=== PATIENT | female | born 2000 | race Caucasian/White ===

== ENCOUNTER 2019-06-30 03:49 | Emergency (ER) | payer OTHER, SELFPAY ==
[2019-06-30 03:59] VITALS: BP 125/69; PULSE 78; RESP 18; TEMP 36.2; O2SAT 97; BMI 26.4
--- NOTE | 2019-06-30 04:05 | ED_ITS ---
HPI - Headache General Chief Complaint: Headache Stated Complaint: sob, nausea vomiting etc since mid May 28 Time Seen by Provider: 06/30/19 04:03 Source: patient Mode of arrival: Ambulatory Limitations: no limitations History of Present Illness HPI Narrative: 20-year-old female former smoker with noncontributory medical history presents with a chief complaint of approximately 1 month of waxing and waning episodes of generalized viral type illness including runny nose, sore throat occasional cough and episodes of nausea, vomiting and diarrhea. She has been tested for coronavirus at least once and was negative. She denies any exposure to persons known to have COVID-19 has had no travel. She presents today with a chief complaint of a generalized headache that is been worsening gradually since 11:00 p.m. last night. She complains it is worse with bright lights and loud noises and improves with rest in a dark room. She denies any fever chills and has no neck pain. She denies neurologic symptoms such as numbness, tingling or weakness. She has no blurred vision or trouble with speech MD Complaint: headache Onset (ago): hour(s) Onset description: gradual Location: diffuse Severity: moderate Quality: aching Relieving factors: dark room Exacerbating factors: light and noise Associated symptoms: nausea, vomiting and photophobia Related Data Allergies Allergy/AdvReac Type Severity Reaction Status Date / Time Penicillins Allergy Verified 06/30/19 04:03 sertraline Allergy Verified 06/30/19 04:03 Review of Systems Constitutional Constitutional: Denies chills, Denies fatigue, Denies fever(s), Denies frequent falls, Reports headache(s), Denies lethargy and Denies weakness Eyes Eyes: Denies change in vision, Denies eye discharge, Denies irritation and Denies loss of vision ENT Ears, Nose, Mouth, and Throat: Denies change in voice, Denies dizziness, Reports headache(s), Denies neck pain, Denies sore throat and Denies throat swelling Cardiovascular Cardiovascular: Denies chest pain, Denies irregular heart rhythm, Denies lightheadedness, Denies palpitations, Denies dyspnea, Denies dyspnea on exertion and Denies orthopnea Respiratory Respiratory: Denies cough, Denies dyspnea, Denies dyspnea on exertion and Denies wheezing Gastrointestinal Gastrointestinal: Denies abdominal pain, Denies change in bowel habits, Denies diarrhea, Reports nausea and Reports vomiting Genitourinary Genitourinary: Denies hematuria, Denies flank pain, Denies urinary incontinence and Denies urinary urgency Musculoskeletal Musculoskeletal: Denies back pain, Denies muscle weakness, Denies neck pain, Denies numbness and Denies tingling Integumentary/Breasts Skin/Breast: Denies pruritus, Denies erythema, Denies rash and Denies wounds Neurologic Neurologic: Denies behavioral changes, Denies confusion, Denies dizziness, Denies frequent falls, Reports headache(s), Denies loss of vision, Denies numbness, Denies tingling and Denies weakness Psychiatric Psychiatric: Denies anxiety, Denies behavioral changes, Denies confusion, Denies depression, Denies homicidal ideation and Denies suicidal ideation Endocrine Endocrine: Denies fatigue, Denies flushing and Denies palpitations Hematologic/Lymphatic Hematologic/Lymphatic: Denies easy bruising Allergic/Immunologic Allergic/Immunologic: Denies urticaria, Denies throat swelling and Denies wheezing Patient History Social History Smoking Status: Former smoker Smoking Status: Former smoker alcohol intake frequency: 0-2 drinks per day Substance Use Type: does not use Exam Narrative Exam Narrative: GENERAL: [20] year old patient appears stated age. Well- nourished, well-developed patient, in mild distress. HEAD: Atraumatic. Normocephalic. EYES: Pupils equal round and reactive. Extraocular motions intact. No scleral icterus. No injection or drainage. ENT: Nose without bleeding, purulent drainage. Throat without erythema, tonsillar hypertrophy or exudate. Airway patent. NECK: Trachea midline. Non tender CARDIOVASCULAR: Regular rate and rhythm without murmurs, gallops, or rubs. RESPIRATORY: Clear to auscultation. Breath sounds equal bilaterally. No wheezes, rales, or rhonchi. GASTROINTESTINAL: Abdomen soft, non-tender, nondistended. EXTREMITIES: No edema or joint tenderness. BACK: Nontender without deformity or crepitance. No flank tenderness. NEURO: AOx3. SKIN: No rash or erythema of visible areas Initial Vital Signs Initial Vital Signs: Vital Signs Temperature 97.1 F L 06/30/19 03:59 Pulse Rate 78 06/30/19 03:59 Respiratory Rate 18 06/30/19 03:59 Blood Pressure 125/69 06/30/19 03:59 Pulse Oximetry 97 06/30/19 03:59 Course Orders Ordered: Discontinued Medications Sodium Chloride (Normal Saline 0.9%) 1,000 mls @ 1,000 mls/hr IV BOLUS ONE Stop: 06/30/19 05:03 Last Infusion: 06/30/19 04:55 Dose: 0 mls/hr Documented by: Admin: 06/30/19 04:15 Dose: 1,000 mls/hr Documented by: ZIYAD Ketorolac Tromethamine (Toradol) 15 mg IV NOW ONE Stop: 06/30/19 04:05 Last Admin: 06/30/19 04:15 Dose: 15 mg Documented by: ZIYAD Metoclopramide HCl (Reglan) 10 mg IV NOW ONE Stop: 06/30/19 04:05 Last Admin: 06/30/19 04:15 Dose: 10 mg Documented by: ZIYAD Consultations Consultation #1: . Vital Signs Vital signs: Vital Signs - 8 hr 06/30/19 03:59 06/30/19 04:55 Temperature 97.1 F L Pulse Rate 78 61 Respiratory Rate 18 16 Blood Pressure 125/69 103/57 L Pulse Oximetry 97 98 Discharge Plan Departure Patient Disposition: Home Clinical Impression: Headache Qualifiers: Headache type: unspecified Headache chronicity pattern: acute headache Intractability: not intractable Qualified Code(s): R51 - Headache Discharge Date/Time: 06/30/19 04:57 Instructions: DI for Headache Activity Restrictions/Additional Instructions: *You have been diagnosed with [ acute headache ] *What to do: *Take medications as directed *Follow up with your primary care provider in 2-3 days, call for an appointment. Let them know you were seen in the Emergency Department and that we ask that you be seen in follow up *Return to ER if you should have any new, worsening or concerning symptoms, such as [ ]
[2019-06-30] MEDS: SODIUM CHLORIDE 0.9% 1,000 ML 1000 ML IV (04:15)
[2019-06-30] MEDS: METOCLOPRAMIDE 10 MG/2 ML INJ IV (04:15)
[2019-06-30] MEDS: KETOROLAC 60 MG/2 ML VIAL 15 MG IV (04:15)
[2019-06-30 04:55] VITALS: BP 103/57; PULSE 61; RESP 16; O2SAT 98
== END 2019-06-30 04:57 | disposition home or self-care (01) ==
PROVIDERS: Emergency Provider Emergency Medicine
DX: R51 Headache (principal); R05 Cough; J02.9 Acute pharyngitis, unspecified
CPT/HCPCS: 96361; 96374; 96375; 99283; 99284; J1885; J2765

== ENCOUNTER 2019-07-29 12:56 | Emergency (ER) | payer OTHER, SELFPAY ==
[2019-07-29 13:00] VITALS: BP 116/72; PULSE 66; RESP 14; TEMP 36.8; O2SAT 98; BMI 26.4
--- NOTE | 2019-07-29 13:12 | ED_ITS ---
HPI - General Adult General Chief complaint: Nausea/Vomiting/Diarrhea Stated complaint: nausea and vomiting 2-3 weeks Time Seen by Provider: 07/29/19 13:04 Source: patient Mode of arrival: Ambulatory Limitations: no limitations History of Present Illness HPI narrative: Patient is a 19-year-old female. 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 Has had 2-3 weeks of some upper abdominal pain and nausea and vomiting. Has seen her medical department about this. Is prescribed Zofran. She states that it does help somewhat but does not take the symptoms completely away. Other than the Zofran she has not tried any other treatments. Was told to come to the emergency department if her symptoms worsened. She felt they were getting better so that is why she came. No prior abdominal surgeries. Related Data Previous Rx's Medication Instructions Recorded promethazine 25 mg PO Q6H PRN #14 tab 07/29/19 Allergies Allergy/AdvReac Type Severity Reaction Status Date / Time Penicillins Allergy Verified 07/29/19 13:15 sertraline Allergy Verified 07/29/19 13:15 Review of Systems Constitutional Constitutional: Denies fever(s) Cardiovascular Cardiovascular: Denies chest pain and Denies dyspnea Respiratory Respiratory: Denies dyspnea Gastrointestinal Gastrointestinal: Reports abdominal pain, Denies change in stool character, Reports nausea and Reports vomiting Genitourinary Genitourinary: Denies dysuria Musculoskeletal Musculoskeletal: Denies back pain, Denies myalgias and Denies arthralgias Integumentary/Breasts Skin/Breast: Denies lesions and Denies rash Neurologic Neurologic: Denies behavioral changes Psychiatric Psychiatric: Denies behavioral changes Hematologic/Lymphatic Hematologic/Lymphatic: Denies easy bleeding and Denies easy bruising Patient History Medical History Healthy adult (Acute) Social History Smoking Status: Former smoker Smoking Status: Former smoker alcohol intake frequency: 0-2 drinks per day Substance Use Type: does not use Exam Initial Vital Signs Initial Vital Signs: Vital Signs Temperature 98.3 F 07/29/19 13:00 Pulse Rate 66 07/29/19 13:00 Respiratory Rate 14 07/29/19 13:00 Blood Pressure 116/72 07/29/19 13:00 Pulse Oximetry 98 07/29/19 13:00 Const General: cooperative, comfortable and well developed Limitations: mental status not altered [facility] Head: normal to inspection and normocephalic Resp Effort & Inspection: normal respiratory effort Auscultation: clear to auscultation bilaterally Cardio Rate: regular rate Rhythm: regular rhythm GI Inspection: non-distended Palpation: soft, No firm and No tender Back/Spine/Pelvis Back: No CVA tenderness Skin Lesions: no lesions Rashes: no rashes Neuro General: alert and awake Cognition: normal cognition Speech: speech normal Extrem General: normal to inspection and capillary refill normal Course Orders Ordered: ED Orders 07/29/19 13:32 Complete Blood Count AUTO DIFF Stat Comprehensive Metabolic Panel Stat Lipase Stat Discontinued Medications Acetaminophen (Tylenol) 650 mg PO NOW ONE Stop: 07/29/19 14:09 Sodium Chloride (Normal Saline 0.9%) 1,000 mls @ 1,000 mls/hr IV BOLUS ONE Stop: 07/29/19 14:11 Last Admin: 07/29/19 14:03 Dose: 1,000 mls/hr Documented by: SONJA Ondansetron HCl (Zofran) 4 mg IV NOW ONE Stop: 07/29/19 13:13 Last Admin: 07/29/19 14:03 Dose: 4 mg Documented by: SONJA Vital Signs Vital signs: Vital Signs - 8 hr 07/29/19 13:00 07/29/19 13:45 Temperature 98.3 F Pulse Rate 66 83 Respiratory Rate 14 12 Blood Pressure 116/72 Blood Pressure [Left Arm] 116/72 Pulse Oximetry 98 97 Medical Decision Making Lab Data Lab results reviewed: Yes I reviewed the patient's lab results. Result diagrams: 07/29/19 13:32 07/29/19 13:32 Labs: Lab Results 07/29/19 07/29/19 Range/Units 13:32 13:32 WBC 8.8 (4.5-11.0) X10^3/uL RBC 4.68 (4.0-5.2) X10^6/uL Hgb 13.0 (12.0-16.0) g/dL Hct 37.6 (36-46) % MCV 80.2 (80-100) fL MCH 27.8 (26-34) PG MCHC 34.6 (30-36) % RDW 13.9 (11.6-14.8) % Plt Count 418 H (150-400) X10^3/uL Neut % (Auto) 56.4 (50-75) % Lymph % (Auto) 29.0 (25-40) % [place] % (Auto) 4.6 (3-14) % Eos % (Auto) 8.8 H (2-4) % Baso % (Auto) 1.2 (0-2) % Neut # (Auto) 5000 (8875-5822) /uL Lymph # (Auto) 2600 (3703-5512) /uL [place] # (Auto) 400 (0-900) /uL Eos # (Auto) 800 H (0-450) /uL Baso # (Auto) 100 (0-100) /uL RBC Morphology Normal morphology Sodium 137 (137-145) mmol/L Potassium 4.1 (3.4-5.1) mmol/L Chloride 102 (98-107) mmol/L Carbon Dioxide 26 (22-32) mmol/L BUN 16 (7-17) mg/dL Creatinine 0.58 (0.52-1.04) mg/dL Estimated GFR > 60.0 (>60) mL/min BUN/Creatinine Ratio 27.6 H (6-22) Glucose 124 H (70-100) mg/dL Calcium 9.4 (8.4-10.2) mg/dL Total Bilirubin 0.9 (0.2-1.3) mg/dL AST 38 H (14-36) IU/L ALT 34 (<35) IU/L Alkaline Phosphatase 73 (38-126) U/L Total Protein 8.1 (6.3-8.2) g/dL Albumin 4.7 (3.5-5.0) g/dL Globulin 3.4 (1.7-4.1) g/dL Albumin/Globulin Ratio 1.4 (1.0-2.8) Lipase 69 (23-300) U/L Point of Care Testing Test Results Negative Urine Dip Bedside Urine Glucose Negative Bedside Urine Bilirubin - Negative Bedside Urine Ketone - Negative Urine Specific [place] 1.025 Bedside Urine Occult Blood - Negative Bedside Urine pH 6.0 Bedside Urine Protein +/- 15 Bedside Urine Urobilinogen - Negative Bedside Urine Nitrite - Negative Bedside Urine Leukocytes - Negative Esterase Point of care testing: Point of Care Testing Test Results Negative Urine Dip Bedside Urine Glucose Negative Bedside Urine Bilirubin - Negative Bedside Urine Ketone - Negative Urine Specific [place] 1.025 Bedside Urine Occult Blood - Negative Bedside Urine pH 6.0 Bedside Urine Protein +/- 15 Bedside Urine Urobilinogen - Negative Bedside Urine Nitrite - Negative Bedside Urine Leukocytes - Negative Esterase MDM Narrative Medical decision making narrative: Labs are unremarkable. Low suspicion for gallbladder disease. Has a benign abdominal exam. No fevers. Will change her Zofran to Phenergan. She was instructed to contact her primary provider for further evaluation. She expressed understanding and agreement. Discharge Plan Departure Patient Disposition: Home Clinical Impression: Nausea and vomiting Qualifiers: Vomiting type: unspecified Instructions: Nausea and Vomiting-Adult Activity Restrictions/Additional Instructions: Recommend that you stop the Zofran and start taking the Phenergan that you were given a prescription for today. I also recommend you contact your primary provider for further workup. Prescriptions: New promethazine 25 mg tablet 25 mg PO Q6H PRN (Reason: nausea and vomiting) Qty: 14 RF: 0
[2019-07-29 13:45] VITALS: BP 116/72; PULSE 83; RESP 12; O2SAT 97
[2019-07-29 14:03] LABS: Basophils Absolute Auto 100 /uL (0-100); Basophils Percent Auto 1.2 % (0-2); Eosinophils Absolute Auto 800 /uL (0-450); Eosinophils Percent Auto 8.8 % (2-4); Hematocrit 37.6 % (36-46); Lymphocytes Absolute Auto 2600 /uL (1100-4500); Mean Corpuscular HGB Conc 34.6 % (30-36); Mean Corpuscular Hemoglobin 27.8 PG (26-34); Mean Corpuscular Volume 80.2 fL (80-100); Monocytes Absolute Auto 400 /uL (0-900); Monocytes Percent Auto 4.6 % (3-14); Neutrophils Absolute Auto 5000 /uL (1500-7000); Neutrophils Percent Auto 56.4 % (50-75); Platelet Count 418 X10^3/uL (150-400); Red Blood Cell Count 4.68 X10^6/uL (4.0-5.2); Red Cell Distribution Width 13.9 % (11.6-14.8); White Blood Cell Count 8.8 X10^3/uL (4.5-11.0)
[2019-07-29] MEDS: SODIUM CHLORIDE 0.9% 1,000 ML 1000 ML IV (14:03)
[2019-07-29] MEDS: ONDANSETRON 4 MG/2 ML INJ IV (14:03)
[2019-07-29 14:05] LABS: Add Manual Diff / Slide Review SLIDE REVIEW
[2019-07-29 14:10] LABS: Alanine Aminotransferase 34 IU/L (<35); Albumin 4.7 g/dL (3.5-5.0); Albumin Globulin Ratio 1.4 (1.0-2.8); Alkaline Phosphatase 73 U/L (38-126); Aspartate Aminotransferase 38 IU/L (14-36); BUN Creatinine Ratio 27.6 (6-22); Bilirubin Total 0.9 mg/dL (0.2-1.3); Blood Urea Nitrogen 16 mg/dL (7-17); Calcium 9.4 mg/dL (8.4-10.2); Carbon Dioxide 26 mmol/L (22-32); Chloride 102 mmol/L (98-107); Estimated Glomerular Filt Rate > 60.0 mL/min (>60); Globulin 3.4 g/dL (1.7-4.1); Glucose 124 mg/dL (70-100); HEMOLYSIS 61 (0-50); Lipase 69 U/L (23-300); Potassium 4.1 mmol/L (3.4-5.1); Sodium 137 mmol/L (137-145); Total Protein 8.1 g/dL (6.3-8.2)
[2019-07-29 14:24] LABS: RBC Morphology Normal Morphology
[2019-07-29] MEDS: ACETAMINOPHEN 325 MG TABLET 650 MG PO (14:31)
[2019-07-29 14:45] VITALS: BP 99/55; PULSE 68; RESP 17; O2SAT 98
[2019-07-29 14:52] VITALS: BP 98/55; PULSE 66; RESP 12; O2SAT 99
== END 2019-07-29 14:54 | disposition home or self-care (01) ==
PROVIDERS: Emergency Provider Emergency Medicine; Referring Provider Emergency Medicine
DX: R11.2 Nausea with vomiting, unspecified (principal); R10.10 Upper abdominal pain, unspecified
CPT/HCPCS: 36415; 80053; 81003; 81025; 83690; 85025; 96361; 96374; 99284; J2405